=== PATIENT | male | born 1995 | race Caucasian/White ===

== ENCOUNTER → 2019-04-03 | Outpatient (CLI) | payer OTHER ==
[2019-04-03 12:45] LABS: Potassium 4.6 mmol/L (3.5-5.1)
[2019-04-03 13:17] LABS: Basophils # (A) 0.1 k/uL (0-0.2); Basophils % (A) 1 %; Eosinophils # (A) 0.5 k/uL (0-0.7); Eosinophils % (A) 8 %; HCT 48.2 % (39.0-53.0); Lymphocytes # (A) 1.3 k/uL (1.0-4.8); Lymphocytes % (A) 22 %; MCHC 33.2 g/dL (31.0-37.0); MCV 90.5 fL (80.0-100.0); Mean Platelet Volume 6.4; Monocytes # (A) 0.3 k/uL (0-1.0); Monocytes % (A) 6 %; Neutrophils # (A) 3.6 k/uL (1.3-7.7); Neutrophils % (A) 62 %; Platelet Count 222 k/uL (150-450); RBC 5.33 m/uL (4.30-5.90); RDW 13.4 % (11.5-15.5); WBC 5.9 k/uL (3.8-10.6)
== END | disposition home or self-care (01) ==
LOC: LABWHC1 12:05
PROVIDERS: ATTEND Orthopaedic Surgery
DX: Z01.812 Encounter for preprocedural laboratory examination (principal); M23.92 Unspecified internal derangement of left knee
CPT/HCPCS: 36415; 80051; 85025

== ENCOUNTER 2019-04-11 12:01 | Day surgery (SDC) | payer OTHER ==
[2019-04-05 15:33] VITALS: BMI 30.3
--- NOTE | 2019-04-10 09:07 | HP ---
HISTORY AND PHYSICAL CHIEF COMPLAINT: Left knee pain. 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 He previously had undergone ACL reconstruction after an injury in December of 2014. He has lateral pain along with clicking and popping. He notes difficulty with running and squatting. Bothers him intermittently and significantly. PAST MEDICAL HISTORY: Significant for depression. PAST SURGICAL HISTORY: Significant for left knee arthroscopy with ACL reconstruction. CURRENT MEDICATIONS: None. He denies drug allergies. FAMILY HISTORY: Significant for stroke and cancers. SOCIAL HISTORY: Negative for current tobacco or alcohol use. 16 POINT REVIEW OF SYSTEMS: Otherwise reviewed and is noncontributory. PHYSICAL EXAMINATION: On examination, the patient is approximately 6 foot tall, 228 pounds of mesomorphic habitus. HEENT: Exam is nonfocal. NECK: Supple. He has painless passive motion of the left hip. Straight leg raise is negative. Active motion left knee -6 to 125 degrees of flexion. He is tender about the lateral greater than medial joint line. He has no real effusion. Collaterals are stable, Katya is negative, Manny's is equivocal. His distal neurovascular appears intact in the left lower extremity. X-rays of the left knee obtained in the office show a metallic pin in the tibial tunnel that extends into the joint. IMPRESSION: Status post left knee ACL reconstruction with irritating hardware and possible lateral meniscal tear. RECOMMENDATIONS: I talked to the patient at length regarding his condition along with treatment options. At this point, he is having pain and mechanical symptoms that limit him. After a thorough discussion, he opts to proceed with surgery. We will plan to proceed with arthroscopic evaluation with probable hardware removal along with possible partial lateral meniscectomy. Risks and benefits were discussed at length in layman's terms. MMODL / IJN: [id number] /
[~2019-04-11 12:01] MED LIST: DEXAMETHASONE SOD PHOSPHATE 10 MG/ML 1 ML VIAL IV ONE; LACTATED RINGERS 1,000 ML IV SCH; LIDOCAINE 1% 20 ML VIAL (10MG/ML) FOR IV START INTRADERMA PRN; MIDAZOLAM 2 MG/2 ML VIAL IV PRN; ONDANSETRON 4 MG/2 ML VIAL IVP ONE; SCOPOLAMINE 1.5MG/72HR PATCH TRANSDERM ONE
[2019-04-11] MEDS: HYDROmorphone 0.5 MG/0.5 ML SYRINGE IVP PRN ×5 (12:52→16:22)
[2019-04-11] MEDS ORDERED: PROPOFOL 10 MG/ML 20 ML VIAL IV ONE (14:00)
[2019-04-11] MEDS ORDERED: LIDOCAINE 1% INJ 10MG/ML (20 ML MDV) ONE (14:00)
[2019-04-11] MEDS ORDERED: MIDAZOLAM 2 MG/2 ML VIAL ONE (14:00)
[2019-04-11] MEDS ORDERED: KETOROLAC 30 MG/ML 1 ML VIAL ONE (14:00)
[2019-04-11] MEDS ORDERED: ePHEDrine SULFATE/0.9% NACL/PF 50 MG/5 ML SYRINGE IV ONE (14:00)
[2019-04-11] MEDS ORDERED: SUCCINYLCHOLINE CHLORIDE 100 MG/5 ML SYR IV ONE (14:00)
[2019-04-11] MEDS ORDERED: fentaNYL (PF) 50 MCG/ML 2 ML AMP ONE (14:00)
[2019-04-11] MEDS ORDERED: EPINEPHrine (PF) 1 ML in SODIUM CHLORIDE 0.9% IRRIGATIO 3,000 ML IRRIGATION ONE ×4 (14:06)
--- NOTE | 2019-04-11 15:53 | P.OP ---
Date of Procedure: 04/11/19 Preoperative Diagnosis: Left knee internal derangement/retained hardware Postoperative Diagnosis: Left knee anterior medial meniscal tear/synovitis Procedure(s) Performed: Left knee arthroscopic partial medial meniscectomy Anesthesia: DERRICK Surgeon: Casey Weems Estimated Blood Loss (ml): 10 Pathology: none sent Condition: stable Disposition: PACU Indications for Procedure: The patient's a 23-year-old male who presents with persistent left knee pain and mechanical symptoms for the past several months. X-rays showed retained hardware the intercondylar notch from a previous ACL reconstruction. Clinically he was having medial symptoms. A discussion the risks and benefits of continued conservative measures versus operative intervention was made with patient. He opted proceed with surgery. Operative risks to include infection, neurovascular injury, development of blood clots, possible incomplete resolution of symptoms and need for subsequent procedures was discussed. Informed consent was obtained. Operative Findings: As below Description of Procedure: The patient was brought to the operating room, and after induction of general anesthesia examined the left knee. Collaterals were stable, Katya was ne gative, and posterior drawer was negative. The left lower extremity was prepped and draped in a normal fashion. A superior lateral portal was made through a 3 mm skin incision superior and lateral to the patella. This was used for outflow. A lateral portal was made through a 5 mm vertical skin incision lateral to the patella tendon above the joint line. Diagnostic arthroscopy was performed. On inspection of the medial compartment, and anterior horn medial meniscal tear was noted in the white-white junction. This was debrided back to stable base with straight baskets and a motorized shaver. On inspection of the notch, the anterior cruciate ligament graft appeared to be intact. Extensive probing of the ligament and dissection did not reveal the retained wire. Rather than debride/damage the graft, I elected to leave this. I did attempt to use fluoroscopy, however the wire appeared to be totally encased in the previously placed graft. On inspection of the lateral compartment no significant cartilage or meniscal pathology was noted. On inspection of the patellofemoral articulation no significant degenerative changes were noted.. The gutters were clear debris. The knee was then thoroughly irrigated. The portals were closed with Steri-Strips. A sterile dressing was applied in addition to a compression stocking. The patient was awoken from general anesthesia and transferred to recovery room in good condition. Blood loss was estimated at 10 mL. No complications were incurred.
[2019-04-11 16:16] VITALS: TEMP 97
[2019-04-11] MEDS: fentaNYL (PF) 50 MCG/ML 2 ML AMP IVP ONE ×2 (16:29→16:36)
[2019-04-11 16:40] VITALS: RESP 18
[2019-04-11] MEDS ORDERED: HYDROcodone/APAP 5-325MG 1 EACH TAB PO ONE (17:05)
[2019-04-11 17:32] VITALS: BP 117/73; PULSE 79
--- NOTE | 2019-04-11 18:20 | FL ---
EXAMINATION TYPE: FL guidance operating room, XR knee limited LT DATE OF EXAM: 04/11/2019 COMPARISON: NONE HISTORY: 23-year-old male attempted foreign body removal, broken patellar pin FINDINGS: One image during intraoperative fluoroscopy during attempted foreign body removal. FLUOROSCOPY Fluoroscopy time of 17 seconds was used during attempted foreign body removal. 1 image/s document/s the procedure. IMPRESSION: Intraoperative fluoroscopy as above.
== END 2019-04-11 17:45 | disposition home or self-care (01) ==
LOC: OR 12:01
PROVIDERS: ATTEND Orthopaedic Surgery
DX: S83.242A Other tear of medial meniscus, current injury, left knee, initial encounter (principal); X58.XXXA Exposure to other specified factors, initial encounter; M65.9 Synovitis and tenosynovitis, unspecified; Z98.890 Other specified postprocedural states; F32.9 Major depressive disorder, single episode, unspecified; Z82.3 Family history of stroke; Z80.9 Family history of malignant neoplasm, unspecified
CPT/HCPCS: 73560; 29881; J2250; J1100; J0690; J2405; J0171; J2001; J3010; J1885; J0330; J2704; J1170

== ENCOUNTER → 2019-05-30 | Outpatient (CLI) | payer BC, OTHER ==
--- NOTE | 2019-05-30 09:12 | CT ---
EXAMINATION TYPE: CT sinus wo con DATE OF EXAM: 05/30/2019 COMPARISON: NONE HISTORY: chronic sinusitis and anosmia with nasal obstruction for [address] DLP: 654.4 mGycm. Automated Exposure Control for Dose Reduction was Utilized. TECHNIQUE: CT scan of the sinuses is performed without contrast, axial images are obtained, coronal r eformatted images are also reviewed. FINDINGS: There is mild mucosal thickening anteriorly in the bilateral sphenoid sinuses. There is mod erate mucosal thickening throughout the right maxillary sinus and mild mucosal thickening inferiorly in the left maxillary sinus. Remainder paranasal sinuses are clear without suspicious opacification o r air-fluid levels. The ostiomeatal complex is patent bilaterally on coronal image 20. Visualized portion of mastoid air cells show no abnormal opacification. The globes are intact bilate rally. Visualized portion of brain parenchyma is unremarkable. IMPRESSION: Chronic paranasal sinus disease worse in the right maxillary sinus. No acute sinusitis i s evident.
[2019-05-31 09:54] LABS: Angiotensin-1 Converting Enz. 57 U/L (8-52)
[2019-05-31 13:37] LABS: C-ANCA <1:20 Titer (<1:20)
== END | disposition home or self-care (01) ==
LOC: RADCTMAIN 07:49
PROVIDERS: ATTEND Otolaryngology
DX: J32.0 Chronic maxillary sinusitis (principal); R53.83 Other fatigue; M25.50 Pain in unspecified joint; R43.0 Anosmia
CPT/HCPCS: 36415; 70486; 82164; 82306; 86038; 86255; 86618